=== PATIENT | male | born 1965 | race African-American/Black ===

== ENCOUNTER 2023-11-06 17:49 | Emergency (ER) | payer OTHER ==
[~2023-11-06 17:49] MED LIST: Iopamidol-370 76% 500 ML MDV (1 ML CHARGE) ONE
[2023-11-06] MEDS ORDERED: Sodium Chloride 0.9% 100 ML ONE (17:58)
[2023-11-06] MEDS ORDERED: Boostrix 0.5 ML (Tdap) VIAL (>/=7 yrs of age) ONE (17:58)
[2023-11-06] MEDS ORDERED: CEFAZOLIN 2 GM VIAL ONE (17:58)
[2023-11-06] MEDS ORDERED: Ondansetron PF 4 MG/2 ML Vial ONE (18:01)
[2023-11-06 18:04] LABS: #Basophils 0.08 10x3/uL (0.0-0.2); %Basophils 1.1 % (0.0-1.0); %Eosinophils 1.9 % (0.0-10.0); %Lymphocytes 40.5 % (21.0-51.0); %Monocytes 7.2 % (0.0-10.0); %Neutrophils 48.9 % (42.0-75.0); Hematocrit 43.8 % (42.0-52.0); Hemoglobin 14.4 g/dL (14.0-18.0); Mean Corpuscular HGB CONC 32.9 g/dL (32.0-36.0); Mean Corpuscular Hemoglobin 30.6 pg (27.0-31.0); Mean Corpuscular Volume 93.2 fL (78.0-98.0); Mean Platelet Volume 10.8 fL (7.4-10.4); Platelet Count 263 10x3/uL (130-400); RBC Distribution Width 12.7 % (11.5-14.5)
[2023-11-06 18:15] LABS: PTT 25.4 sec (22.9-36.1); Prothrombin Time 13.4 sec (12.0-14.7)
[2023-11-06 18:19] LABS: ALT (SGPT) 19 U/L (8-55); AST (SGOT) 16 U/L (5-34); Albumin 3.9 g/dL (3.5-5.0); Alkaline Phosphatase 75 U/L (40-110); Anion Gap 13 mmol/L (10-20); BUN (Urea Nitrogen) 13 mg/dL (8.4-25.7); Bilirubin, Total 0.3 mg/dL (0.2-1.2); Calc. Creatinine Clearance 0 mL/min (70-130); Calcium 9.4 mg/dL (7.8-10.44); Carbon Dioxide 22 mmol/L (22-29); Chloride 108 mmol/L (98-107); Estimated GFR 81; Globulin 3.4 g/dL (2.4-3.5); Glucose 128 mg/dL (70-105); Potassium 3.5 mmol/L (3.5-5.1); Protein, Total 7.3 g/dL (6.0-8.3); Sodium 139 mmol/L (136-145)
[2023-11-06] MEDS ORDERED: Lidocaine 1% PF 5 ML VIAL ONE ×2 (19:14→19:35)
[2023-11-06] MEDS ORDERED: fentaNYL 50 mcg/mL 1 mL Vial ONE ×2 (19:37→21:41)
[2023-11-06] MEDS ORDERED: Ketorolac Tromethamine 30 MG (1 mL) VIAL ONE (21:41)
== END 2023-11-06 22:53 | disposition home or self-care (01) ==
LOC: ERS 17:49
DX: S22.32XA Fracture of one rib, left side, initial encounter for closed fracture (principal); S01.01XA Laceration without foreign body of scalp, initial encounter; S41.112A Laceration without foreign body of left upper arm, initial encounter; S51.012A Laceration without foreign body of left elbow, initial encounter; Z23 Encounter for immunization; V89.2XXA Person injured in unspecified motor-vehicle accident, traffic, initial encounter
CPT/HCPCS: 12007; 36415; 70450; 71260; 72125; 74177; 80053; 80307; 85025; 85610; 85730; 86850; 86900; 86901; 90471; 90715; 93005; 96365; 96375; 96376; J1885; J2405; J3010; J3490